=== PATIENT | female | born 1965 | race African-American/Black ===

== ENCOUNTER 2017-03-21 10:26 | Emergency (ER) | payer MEDICARE, MEDICAID ==
[~2017-03-21] VITALS: Ht 170.2 cm; Wt 108.0 kg
[2017-03-21 10:27] VITALS: BP 160/87; PULSE 101; RESP 16; TEMP 98.4; O2SAT 99
[2017-03-21] MEDS ORDERED: IOHEXOL 350 MG/ML 10 ML VIAL (for RAD DIAG) IVCONTRAST ONE (10:27)
[2017-03-21] MEDS ORDERED: MORPHINE SULFATE 4 MG/ML INJ IV PUSH ONE (11:15)
[2017-03-21] MEDS ORDERED: DOCU100C PO (11:32)
[2017-03-21] MEDS ORDERED: DILT120T PO (11:32)
[2017-03-21] MEDS ORDERED: ALBUAER3 INH (11:32)
[2017-03-21] MEDS ORDERED: ZOCO10TA PO (11:32)
[2017-03-21] MEDS ORDERED: MONT10TA4 PO (11:32)
[2017-03-21] MEDS ORDERED: VENTAER INH (11:32)
[2017-03-21] MEDS ORDERED: CHOL1CAP6 PO (11:32)
[2017-03-21] MEDS ORDERED: FERR325T8 PO (11:32)
[2017-03-21] MEDS ORDERED: HYDR25TA5 PO (11:32)
[2017-03-21] MEDS ORDERED: SODIUM CHLOR 0.9% 1000 ML INJ 1,000 ML IV SCH (11:49)
[2017-03-21] MEDS ORDERED: SODIUM CHLORIDE 0.9% FLUSH 10 ML FLUSH IV FLUSH PRN (12:00)
[2017-03-21 12:05] VITALS: RESP 17; O2SAT 98
[2017-03-21 12:06] VITALS: BP 132/68; PULSE 89; RESP 17; TEMP 97.8; O2SAT 98
[2017-03-21] MEDS ORDERED: diphenhydrAMINE HCL 50 MG/ML VIAL IV PUSH STA (12:17)
[2017-03-21 12:27] LABS: BASOPHIL # 0.1 TH/MM3 (0-0.2); BASOPHIL % 1.1 % (0.0-2.0); EOSINOPHIL # 0.2 TH/MM3 (0-0.4); EOSINOPHIL % 3.2 % (0.0-4.0); HEMO FLAGS DIFF FINAL; LYMPH % 26.5 % (9.0-44.0); LYMPHOCYTE # 1.7 TH/MM3 (1.0-4.8); MEAN CELL VOLUME 87.3 FL (80.0-100.0); MEAN CORPUSCULAR HEMOGLOBIN 27.1 PG (27.0-34.0); MONO % 8.4 % (0.0-8.0); NEUT % 60.8 % (16.0-70.0); PLATELET COUNT 264 TH/MM3 (150-450); RED BLOOD COUNT 4.81 MIL/MM3 (4.00-5.30); RED CELL DISTRIBUTION WIDTH 14.6 % (11.6-17.2); WHITE BLOOD COUNT 6.5 TH/MM3 (4.0-11.0)
[2017-03-21 12:41] LABS: ANION GAP 6 MEQ/L (5-15); AST (GOT) 8 U/L (15-37); BICARBONATE 28.3 MEQ/L (21.0-32.0); BLOOD UREA NITROGEN 8 MG/DL (7-18); CHLORIDE 106 MEQ/L (98-107); GLOMERULAR FILTRATION RATE 87 ML/MIN (>89); POTASSIUM 3.9 MEQ/L (3.5-5.1); SODIUM (NA) 140 MEQ/L (136-145)
[2017-03-21 12:45] LABS: ALKALINE PHOSPHATASE 87 U/L (45-117); ALT (GPT) 12 U/L (10-53); TOTAL BILIRUBIN ADULT 0.4 MG/DL (0.2-1.0)
[2017-03-21 14:23] VITALS: BP 128/81; PULSE 78; RESP 16; TEMP 97.9; O2SAT 99
[2017-03-21 14:36] VITALS: BP 140/70; PULSE 78; RESP 16; TEMP 97.8; O2SAT 99
--- NOTE | 2017-03-21 15:07 | RADRPT ---
EXAM DATE/TIME: 03/21/2017 14:06 [place] COMPARISON: No previous studies available for comparison. INDICATIONS : Lower right side abdomen pain. IV CONTRAST: 96 cc Omnipaque 350 (iohexol) IV ORAL CONTRAST: No oral contrast ingested. RADIATION DOSE: 22.00 CTDIvol (mGy) ; Patient body habitus MEDICAL HISTORY : Cardiovascular disease. Hypertension. AFIB SURGICAL HISTORY : Hernia repair, Pelvic mass. ENCOUNTER: Initial ACUITY: 2 days PAIN SCALE: 6/10 LOCATION: Right lower quadrant TECHNIQUE: Volumetric scanning of the abdomen and pelvis was performed. Using automated exposure control and ad justment of the mA and/or kV according to patient size, radiation dose was kept as low as reasonably achievable to obtain optimal diagnostic quality images. DICOM format image data is available electro nically for review and comparison. FINDINGS: LOWER LUNGS: The visualized lower lungs are clear. LIVER: Homogeneous density without lesion. There are calcified stones in the gallbladder. There is intrahep atic bile duct dilatation and common bile duct is dilated to at least its midportion measuring up to 12 mm. No clear obstructing mass is seen. SPLEEN: Normal size without lesion. PANCREAS: Heterogeneous appearance to the pancreatic head. There is no pancreatic duct dilatation. KIDNEYS: Normal in size and shape. There is no mass, stone or hydronephrosis. ADRENAL GLANDS: Within normal limits. VASCULAR: There is no aortic aneurysm. The pelvis mass has mass effect on the IVC. There are enlarged ovarian v eins bilaterally. BOWEL/MESENTERY: Moderate to large hiatal hernia is present. Small bowel demonstrates no acute finding. No acute colon abnormality is visualized. The pelvis mass has mass effect on the small bowel and sigmoid colon. The re is no free air or free fluid. ABDOMINAL WALL: There is a fat-containing hernia superior and to the right of the umbilicus. RETROPERITONEUM: There is no lymphadenopathy. BLADDER: Decompressed. There is mass effect on the bladder secondary to the pelvis mass. Cystic structure in t he left adnexa measures 7.4 x 3.9 cm and may represent a portion of the urinary bladder or adnexal cy stic lesion. REPRODUCTIVE: Uterus is massively enlarged with a lobulated contour and demonstrates heterogeneous density and enha ncement. There areas of coarse calcification. The uterus measures approximately 20.6 x 18.4 x 28 cm. INGUINAL: There is no lymphadenopathy or hernia. MUSCULOSKELETAL: No acute osseous abnormality is visualized. CONCLUSION: 1. Massively enlarged and lobulated uterus likely containing innumerable masses. This most likely rep resents a multi-fibroid uterus. It has mass effect on all the adjacent surrounding structures, as abo ve. 2. There is a 7 cm cystic lesion in the left adnexa which may represent a displaced portion of the ur inary bladder or could represent an adnexal/ovarian cystic lesion. 3. Cholelithiasis with abnormal intra-and extrahepatic bile duct dilatation with caliber level change in the mid common bile duct. No clear cause for this is identified. However, pancreatic head is hete rogeneous. Suggest correlating for any findings that she could suggest bile duct obstruction. At some point when patient condition permits for a good quality examination, suggest MRCP with and without i ntravenous contrast. 4. Moderate to large hiatal hernia. Roger Herrera MD on March 21, 2017 at 14:58 Board Certified Radiologist. This report was verified electronically.
[2017-03-21] MEDS ORDERED: HYDR-3533 PO (17:15)
--- NOTE | 2017-03-21 17:15 | PD ---
HPI Chief Complaint: Abdominal Pain Time Seen by Provider: 11:05 Travel History International Travel<30 days: No Contact w/Intl Traveler<30days: No Traveled to known affect area: No History of Present Illness HPI So 51 year-old woman presents emergent department with abdominal pain. She states that she started getting abdominal pain this morning. States she slipped and fell and hit her supple right side into things as caused it. She' ll little bit of sciatica symptoms. She has a lot of vertigo the cause of symptoms. She is a vertigo regularly. States she fell she's had the pain in the right inguinal area in her belly. She also states she's had umbilical hernia symptoms. She's had a local hernia for some time for the past day or 2 spinal but more tender and firm. History Past Medical History Narrative Medical Vertigo Hypertension Anemia Hyperlipidemia A. fib Arthritis Vertigo Tetanus Vaccination: < 5 Years Influenza Vaccination: No Menopausal: Yes : 2 Para: 2 Social History Alcohol Use: No (PT DENIES) Tobacco Use: No (QUIT 20 YEARS AGO) Allergies-Medications (Allergen,Severity, Reaction): Coded Allergies: aspirin (Verified Allergy, Severe, HIVES, 03/21/17) penicillin G (Verified Allergy, Severe, HIVES, 03/21/17) morphine (Verified Allergy, Intermediate, HIVES, 03/21/17) Reported Meds & Prescriptions Reported Meds & Active Scripts Active Lortab (Hydrocodone-Acetaminophen) 5-325 Mg Tab 1-2 Tab PO Q6H PRN Reported Proair Hfa 8.5 GM Inh (Albuterol Sulfate) 90 Mcg/Act Aer 2 Puff INH Q4-6H PRN 108 mcg/actuation Docusate Sodium 100 Mg Cap 100 Mg PO HS Ventolin Hfa 18 GM Inh (Albuterol Sulfate) 90 Mcg/Act Aer 2 Puff INH Q4-6H PRN Montelukast (Montelukast Sodium) 10 Mg Tab 10 Mg PO HS Zocor (Simvastatin) 10 Mg Tab 10 Mg PO DAILY Hydrochlorothiazide 25 Mg Tab 25 Mg PO DAILY Vitamin D-3 (Cholecalciferol) 1,000 Unit Cap Tab PO DAILY Ferrous Sulfate 325 Mg (65 Mg Iron) Tablet 325 Mg PO DAILY Diltiazem (Diltiazem HCl) 120 Mg Tab 120 Mg PO DAILY Review of Systems Except as stated in HPI: all other systems reviewed are Neg Physical Exam Narrative GENERAL: Well-appearing 51 year-old woman, no acute distress. SKIN: Focused skin assessment warm/dry. HEAD: Atraumatic. Normocephalic. EYES: Pupils equal and round. No scleral icterus. No injection or drainage. ENT: No nasal bleeding or discharge. Mucous membranes pink and moist. NECK: Trachea midline. No JVD. CARDIOVASCULAR: Regular rate and rhythm. No murmur appreciated. RESPIRATORY: No accessory muscle use. Clear to auscultation. Breath sounds equal bilaterally. GASTROINTESTINAL: Abdomen is obese and soft. She has a firm palpable umbilical hernia. Is difficult to completely reduce it. Is a little bit tender. MUSCULOSKELETAL: No obvious deformities. No clubbing. No cyanosis. No edema. NEUROLOGICAL: Awake and alert. No obvious cranial nerve deficits. Motor grossly within normal limits. Normal speech. PSYCHIATRIC: Appropriate mood and affect; insight and judgment normal. Data Data Last Documented VS Vital Signs Date Time Temp Pulse Resp B/P (MAP) Pulse Ox O2 Delivery O2 Flow Rate FiO2 03/21/17 14:36 97.8 78 16 140/70 (93) 99 Room Air Orders Orders Iv Access Insert/Monitor (03/21/17 11:12) Morphine Inj (Morphine Inj) (03/21/17 11:15) Complete Blood Count With Diff (03/21/17 11:49) Comprehensive Metabolic Panel (03/21/17 11:49) Lactic Acid (03/21/17 11:49) Ct Abd/Pel W Iv Contrast(Rout) (03/21/17 11:49) Ecg Monitoring (03/21/17 11:49) Oximetry (03/21/17 11:49) Sodium Chlor 0.9% 1000 Ml Inj (Ns 1000 M (03/21/17 11:49) Sodium Chloride 0.9% Flush (Ns Flush) (03/21/17 12:00) Diphenhydramine Inj (Benadryl Inj) (03/21/17 12:17) Iohexol 350 Inj (Omnipaque 350 Inj) (03/21/17 10:27) Labs Laboratory Tests Test 03/21/17 11:55 White Blood Count 6.5 TH/MM3 Red Blood Count 4.81 MIL/MM3 Hemoglobin 13.0 GM/DL Hematocrit 42.0 % Mean Corpuscular Volume 87.3 FL Mean Corpuscular Hemoglobin 27.1 PG Mean Corpuscular Hemoglobin Concent 31.0 % Red Cell Distribution Width 14.6 % Platelet Count 264 TH/MM3 Mean Platelet Volume 9.0 FL Neutrophils (%) (Auto) 60.8 % Lymphocytes (%) (Auto) 26.5 % Monocytes (%) (Auto) 8.4 % Eosinophils (%) (Auto) 3.2 % Basophils (%) (Auto) 1.1 % Neutrophils # (Auto) 4.0 TH/MM3 Lymphocytes # (Auto) 1.7 TH/MM3 Monocytes # (Auto) 0.5 TH/MM3 Eosinophils # (Auto) 0.2 TH/MM3 Basophils # (Auto) 0.1 TH/MM3 CBC Comment DIFF FINAL Differential Comment Blood Urea Nitrogen 8 MG/DL Creatinine 0.83 MG/DL Random Glucose 90 MG/DL Total Protein 7.7 GM/DL Albumin 3.3 GM/DL Calcium Level 9.1 MG/DL Alkaline Phosphatase 87 U/L Aspartate Amino Transf (AST/SGOT) 8 U/L Alanine Aminotransferase (ALT/SGPT) 12 U/L Total Bilirubin 0.4 MG/DL Sodium Level 140 MEQ/L Potassium Level 3.9 MEQ/L Chloride Level 106 MEQ/L Carbon Dioxide Level 28.3 MEQ/L Anion Gap 6 MEQ/L Estimat Glomerular Filtration Rate 87 ML/MIN Lactic Acid Level 2.4 mmol/L MDM Medical Decision Making Medical Screen Exam Complete: Yes Emergency Medical Condition: Yes Interpretation(s) Last 24 hours Impressions Abdomen/Pelvis CT 03/21/17 1149 Signed Impressions: Service Date/Time: Tuesday, March 21, 2017 14:06 - CONCLUSION: 1. Massively enlarged and lobulated uterus likely containing innumerable masses. This most likely represents a multi-fibroid uterus. It has mass effect on all the adjacent surrounding structures, as above. 2. There is a 7 cm cystic lesion in the left adnexa which may represent a displaced portion of the urinary bladder or could represent an adnexal/ovarian cystic lesion. 3. Cholelithiasis with abnormal intra-and extrahepatic bile duct dilatation with caliber level change in the mid common bile duct. No clear cause for this is identified. However, pancreatic head is heterogeneous. Suggest correlating for any findings that she could suggest bile duct obstruction. At some point when patient condition permits for a good quality examination, suggest MRCP with and without intravenous contrast. 4. Moderate to large hiatal hernia. Roger Herrera MD Laboratory Tests Test 03/21/17 11:55 White Blood Count 6.5 TH/MM3 Red Blood Count 4.81 MIL/MM3 Hemoglobin 13.0 GM/DL Hematocrit 42.0 % Mean Corpuscular Volume 87.3 FL Mean Corpuscular Hemoglobin 27.1 PG Mean Corpuscular Hemoglobin Concent 31.0 % Red Cell Distribution Width 14.6 % Platelet Count 264 TH/MM3 Mean Platelet Volume 9.0 FL Neutrophils (%) (Auto) 60.8 % Lymphocytes (%) (Auto) 26.5 % Monocytes (%) (Auto) 8.4 % Eosinophils (%) (Auto) 3.2 % Basophils (%) (Auto) 1.1 % Neutrophils # (Auto) 4.0 TH/MM3 Lymphocytes # (Auto) 1.7 TH/MM3 Monocytes # (Auto) 0.5 TH/MM3 Eosinophils # (Auto) 0.2 TH/MM3 Basophils # (Auto) 0.1 TH/MM3 CBC Comment DIFF FINAL Differential Comment Blood Urea Nitrogen 8 MG/DL Creatinine 0.83 MG/DL Random Glucose 90 MG/DL Total Protein 7.7 GM/DL Albumin 3.3 GM/DL Calcium Level 9.1 MG/DL Alkaline Phosphatase 87 U/L Aspartate Amino Transf (AST/SGOT) 8 U/L Alanine Aminotransferase (ALT/SGPT) 12 U/L Total Bilirubin 0.4 MG/DL Sodium Level 140 MEQ/L Potassium Level 3.9 MEQ/L Chloride Level 106 MEQ/L Carbon Dioxide Level 28.3 MEQ/L Anion Gap 6 MEQ/L Estimat Glomerular Filtration Rate 87 ML/MIN Lactic Acid Level 2.4 mmol/L Differential Diagnosis Incarcerated hernia, mass, obstruction, other Narrative Course Medical decision-making new para this a 51 year-old woman presents emergent from vague right lower abdominal discomfort. She has an umbilical hernia that she thinks the pains related to but it's not over the hernia itself. I can't completely reduce the hernia at the bedside. CT scan shows a contains only fat. Source of her pain is likely large fibroid uterus. She needs follow-up either way. She looks well. No vomiting or obstructive symptoms. She is a benign abdominal exam. Diagnosis Primary Impression: Abdominal pain Additional Instructions: Follow-up with her primary doctor. Return to the emergency department for any new or worsening symptoms. Med/Other Pt SpecificInfo: Prescription(s) given Scripts Hydrocodone-Acetaminophen (Lortab) 5-325 Mg Tab 1-2 TAB PO Q6H Y for PAIN, #12 TAB 0 Refills Prov: Dhruv Silvestre MD 03/21/17 Disposition: 01 DISCHARGE HOME Condition: Stable Dhruv Silvestre MD Mar 21, 2017 17:15
[2017-03-21 17:20] VITALS: BP 122/81; TEMP 97.8
== END 2017-03-21 17:22 | disposition home or self-care (01) ==
LOC: NEPD 10:26
DX: R10.31 Right lower quadrant pain (principal); K42.9 Umbilical hernia without obstruction or gangrene; K44.9 Diaphragmatic hernia without obstruction or gangrene; K80.20 Calculus of gallbladder without cholecystitis without obstruction; I10 Essential (primary) hypertension; D64.9 Anemia, unspecified; I48.91 Unspecified atrial fibrillation; Z79.899 Other long term (current) drug therapy; W01.0XXA Fall on same level from slipping, tripping and stumbling without subsequent striking against object, initial encounter
CPT/HCPCS: 74177; 80053; 83605; 85025; 96361; 96374; 96375; 99285; J1200; J2270; J7030; Q9967

== ENCOUNTER 2017-04-03 20:15 | Emergency (ER) | payer MEDICAID, MEDICARE ==
[~2017-04-03 20:15] MED LIST: ALBUAER3 INH; CHOL1CAP6 PO; DILT120T PO; DOCU100C PO; FERR325T8 PO; HYDR-3533 PO; HYDR25TA5 PO; MONT10TA4 PO; VENTAER INH; ZOCO10TA PO
[2017-04-03 20:19] VITALS: BP 169/87; PULSE 92; RESP 16; TEMP 98.6; O2SAT 95
[2017-04-03] MEDS ORDERED: HYDR-3533 PO (22:29)
[2017-04-03] MEDS ORDERED: IBUP-232 PO (22:29)
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
[2017-04-03] MEDS ORDERED: KETOROLAC TROMETHAMINE 60 MG/2 ML (IM) VIAL IM ONE (22:30)
[2017-04-03] MEDS ORDERED: ACETAMINOPHEN/HYDROcodone 325 MG/5 MG TAB PO ONE (22:30)
== END 2017-04-03 22:51 | disposition home or self-care (01) ==
LOC: NEPD 20:15
DX: R10.31 Right lower quadrant pain (principal); R19.09 Other intra-abdominal and pelvic swelling, mass and lump; I10 Essential (primary) hypertension; Z87.09 Personal history of other diseases of the respiratory system; Z86.79 Personal history of other diseases of the circulatory system; Z86.69 Personal history of other diseases of the nervous system and sense organs
CPT/HCPCS: 96372; 99284; J1885

== ENCOUNTER 2017-07-15 19:52 | Emergency (ER) | payer MEDICARE ==
[~2017-07-15] VITALS: Ht 172.7 cm; Wt 110.0 kg
[~2017-07-15 19:52] MED LIST changes: -CHOL1CAP6 PO; +D31000CA3 PO; -DOCU100C PO; +DOCU100C15 PO; +FERR325T18 PO; -FERR325T8 PO; +IBUP-232 PO
[2017-07-15 19:55] VITALS: BP 180/93; PULSE 100; RESP 18; TEMP 98.3; O2SAT 97
[2017-07-15 20:36] VITALS: BP 150/81; PULSE 95; RESP 16; O2SAT 97
[2017-07-15 21:21] VITALS: RESP 19; O2SAT 98
[2017-07-15 21:28] LABS: AUTOMATED NEUTROPHIL # 3.8 TH/MM3 (1.8-7.7); BASOPHIL # 0.1 TH/MM3 (0-0.2); BASOPHIL % 1.1 % (0.0-2.0); EOSINOPHIL # 0.2 TH/MM3 (0-0.4); EOSINOPHIL % 3.8 % (0.0-4.0); HEMATOCRIT 41.5 % (35.0-46.0); HEMOGLOBIN 13.1 GM/DL (11.6-15.3); LYMPH % 20.8 % (9.0-44.0); LYMPHOCYTE # 1.2 TH/MM3 (1.0-4.8); MEAN CELL VOLUME 85.4 FL (80.0-100.0); MEAN CORPUSCULAR HGB CONC 31.6 % (32.0-36.0); MEAN PLATELET VOLUME 8.7 FL (7.0-11.0); MONO % 9.1 % (0.0-8.0); MONOCYTE # 0.5 TH/MM3 (0-0.9); NEUT % 65.2 % (16.0-70.0); PLATELET COUNT 282 TH/MM3 (150-450); RED BLOOD COUNT 4.86 MIL/MM3 (4.00-5.30); RED CELL DISTRIBUTION WIDTH 13.9 % (11.6-17.2); WHITE BLOOD COUNT 5.8 TH/MM3 (4.0-11.0)
[2017-07-15 22:02] LABS: ALT (GPT) 12 U/L (10-53)
[2017-07-15 22:07] LABS: ALBUMIN 3.5 GM/DL (3.4-5.0); ALKALINE PHOSPHATASE 82 U/L (45-117); AST (GOT) 13 U/L (15-37); BICARBONATE 25.2 MEQ/L (21.0-32.0); BLOOD UREA NITROGEN 12 MG/DL (7-18); CALCIUM 9.3 MG/DL (8.5-10.1); CHLORIDE 105 MEQ/L (98-107); CREATININE 0.88 MG/DL (0.50-1.00); GLOMERULAR FILTRATION RATE 82 ML/MIN (>89); GLUCOSE,RANDOM 113 MG/DL (74-106); SODIUM (NA) 140 MEQ/L (136-145); TOTAL BILIRUBIN ADULT 0.3 MG/DL (0.2-1.0); TOTAL PROTEIN 8.3 GM/DL (6.4-8.2); TROPONIN I LESS THAN 0.02 NG/ML (0.02-0.05)
--- NOTE | 2017-07-15 22:11 | PD ---
HPI Chief Complaint: Dizziness Time Seen by Provider: 20:47 Travel History International Travel<30 days: No Contact w/Intl Traveler<30days: No Traveled to known affect area: No History of Present Illness HPI This is a 51-year-old female history of hypertension, asthma, hyperlipidemia, who presents today stating that she is out of her medications. She states that she just feels funny. She also reports tingling to the left lateral neck. There is no numbness or tingling to her extremities. There is no headache. There is no neck pain. There are no other complaints time my examination. She is visiting here from [place]. The patient denies any history of diabetes. She reports mainly her diltiazem as the one that she is completely out of. PFSH Past Medical History Asthma: Yes Atrial Fibrillation: Yes Cardiovascular Problems: Yes (AFIB) Diminished Hearing: No Hypertension: Yes Medical other: Yes (EDEMA) Neurologic: Yes (VERTIGO) Reproductive: Yes (UTERINE FIBROIDS) ?: Not Menopausal: Yes : 2 Para: 2 Miscarriage: 0 : 0 Past Surgical History Abdominal Surgery: Yes (HERNIA REPAIR ) Social History Alcohol Use: No (PT DENIES) Tobacco Use: No (QUIT 20 YEARS AGO) Substance Use: No (PT DENIES) Allergies-Medications (Allergen,Severity, Reaction): Coded Allergies: aspirin (Verified Allergy, Severe, HIVES, 07/15/17) penicillin G (Verified Allergy, Severe, HIVES, 07/15/17) morphine (Verified Allergy, Intermediate, HIVES, 07/15/17) Reported Meds & Prescriptions Reported Meds & Active Scripts Active Ibuprofen 600 Mg Tab 600 Mg PO Q8H PRN Lortab (Hydrocodone-Acetaminophen) 5-325 Mg Tab 1-2 Tab PO Q6H PRN Lortab (Hydrocodone-Acetaminophen) 5-325 Mg Tab 1-2 Tab PO Q6H PRN Reported Proair Hfa 8.5 GM Inh (Albuterol Sulfate) 90 Mcg/Act Aer 2 Puff INH Q4-6H PRN 108 mcg/actuation Docusate Sodium 100 Mg Cap 100 Mg PO HS Ventolin Hfa 18 GM Inh (Albuterol Sulfate) 90 Mcg/Act Aer 2 Puff INH Q4-6H PRN Montelukast (Montelukast Sodium) 10 Mg Tab 10 Mg PO HS Zocor (Simvastatin) 10 Mg Tab 10 Mg PO DAILY Hydrochlorothiazide 25 Mg Tab 25 Mg PO DAILY Vitamin D-3 (Cholecalciferol) 1,000 Unit Cap Tab PO DAILY Ferrous Sulfate 325 Mg (65 Mg Iron) Tablet 325 Mg PO DAILY Diltiazem (Diltiazem HCl) 120 Mg Tab 120 Mg PO DAILY Review of Systems Except as stated in HPI: all other systems reviewed are Neg General / Constitutional: No: Fever, Chills HENT: No: Headaches, Neck Pain Cardiovascular: No: Chest Pain or Discomfort, Palpitations Respiratory: No: Cough, Shortness of Breath Gastrointestinal: No: Nausea, Vomiting, Abdominal Pain Genitourinary: No: Frequency, Dysuria Musculoskeletal: No: Weakness, Pain Neurologic: Positive: Other (tingling to the left lateral neck.), No: Weakness , Dizziness, Headache Physical Exam Narrative GENERAL: Well developed well-nourished female in no acute respiratory distress. SKIN: Focused skin assessment warm/dry. HEAD: Atraumatic. Normocephalic. EYES: No scleral icterus. No injection or drainage. ENT: No nasal bleeding or discharge. Mucous membranes pink and moist. NECK: Trachea midline. Supple. CARDIOVASCULAR: Regular rate and rhythm. No murmur appreciated. RESPIRATORY: No accessory muscle use. Clear to auscultation. Breath sounds equal bilaterally. GASTROINTESTINAL: Abdomen soft, non-tender, nondistended. Hepatic and splenic margins not palpable. MUSCULOSKELETAL: No obvious deformities. No clubbing. No cyanosis. No edema. NEUROLOGICAL: Awake and alert. No obvious cranial nerve deficits. Motor grossly within normal limits. Normal speech. Sensation equal to all 4 extremities. PSYCHIATRIC: Appropriate mood and affect; insight and judgment normal. Data Data Last Documented VS Vital Signs Date Time Temp Pulse Resp B/P (MAP) Pulse Ox O2 Delivery O2 Flow Rate FiO2 07/15/17 21:21 19 98 Room Air 07/15/17 20:36 95 07/15/17 19:55 98.3 Orders Orders Electrocardiogram (07/15/17 20:58) Complete Blood Count With Diff (07/15/17 20:58) Comprehensive Metabolic Panel (07/15/17 20:58) Ckmb (Isoenzyme) Profile (07/15/17 20:58) Troponin I (07/15/17 20:58) Iv Access Insert/Monitor (07/15/17 20:58) Ecg Monitoring (07/15/17 20:58) Oximetry (07/15/17 20:58) Labs Laboratory Tests Test 07/15/17 21:05 White Blood Count 5.8 TH/MM3 Red Blood Count 4.86 MIL/MM3 Hemoglobin 13.1 GM/DL Hematocrit 41.5 % Mean Corpuscular Volume 85.4 FL Mean Corpuscular Hemoglobin 27.0 PG Mean Corpuscular Hemoglobin Concent 31.6 % Red Cell Distribution Width 13.9 % Platelet Count 282 TH/MM3 Mean Platelet Volume 8.7 FL Neutrophils (%) (Auto) 65.2 % Lymphocytes (%) (Auto) 20.8 % Monocytes (%) (Auto) 9.1 % Eosinophils (%) (Auto) 3.8 % Basophils (%) (Auto) 1.1 % Neutrophils # (Auto) 3.8 TH/MM3 Lymphocytes # (Auto) 1.2 TH/MM3 Monocytes # (Auto) 0.5 TH/MM3 Eosinophils # (Auto) 0.2 TH/MM3 Basophils # (Auto) 0.1 TH/MM3 CBC Comment DIFF FINAL Differential Comment Blood Urea Nitrogen 12 MG/DL Creatinine 0.88 MG/DL Random Glucose 113 MG/DL Total Protein 8.3 GM/DL Albumin 3.5 GM/DL Calcium Level 9.3 MG/DL Alkaline Phosphatase 82 U/L Aspartate Amino Transf (AST/SGOT) 13 U/L Alanine Aminotransferase (ALT/SGPT) 12 U/L Total Bilirubin 0.3 MG/DL Sodium Level 140 MEQ/L Potassium Level 3.9 MEQ/L Chloride Level 105 MEQ/L Carbon Dioxide Level 25.2 MEQ/L Anion Gap 10 MEQ/L Estimat Glomerular Filtration Rate 82 ML/MIN Total Creatine Kinase 78 U/L Troponin I LESS THAN 0.02 NG/ML [facility] Medical Decision Making Medical Screen Exam Complete: Yes Emergency Medical Condition: Yes Differential Diagnosis Involved arrangement versus dehydration versus anemia. Narrative Course 51-year-old female presents today stating that she felt funny. She reported tingling to her left lateral neck. Patient has no focal deficits on exam. She had subjective tingling on her left lateral neck that is nearly resolved. The patient has had no headache no dizziness, no blurry vision. She states that she had not taken her diltiazem for a few days. Blood pressure was 150/80. EKG shows no evidence of acute process. Electrolytes and CBC are within normal limits. The patient be discharged with a prescription for her diltiazem 120 CD for 30 days. She is going back to [place] after the holidays. She's instructed return here if she develops any new symptoms or any other reason the concerns her. Diagnosis Primary Impression: left lateral neck tingling sensation Additional Impressions: Hypertension Medication refill Hyperlipidemia History of asthma Additional Instructions: Follow up with her physician when you return home to [place]. Return if you feel any new sensation or any reason the concerns. Med/Other Pt SpecificInfo: Prescription(s) given Scripts Diltiazem CD 24 HR (Diltiazem CD 24 HR) 120 Mg Caper 120 MG PO DAILY, #30 CAP 0 Refills Prov: Lisandro Gonzalez MD 07/15/17 Disposition: 01 DISCHARGE HOME Condition: Stable Lisandro Gonzalez MD Jul 15, 2017 22:11
[2017-07-15] MEDS ORDERED: DILT120C50 PO (22:23)
--- NOTE | 2017-07-16 09:33 | EKG ---
Date Performed: 07/15/2017 Time Performed: 21:11:41 PTAGE: 51 years EKG: Sinus rhythm BORDERLINE LEFT AXIS DEVIATION BORDERLINE ECG No prior electrocardiogram available for comparison. DOCTOR: Hebert Carlos Interpretating Date/Time 07/17/2017 07:54:12
== END 2017-07-15 23:12 | disposition home or self-care (01) ==
LOC: NEPC 19:52
DX: R20.2 Paresthesia of skin (principal); I10 Essential (primary) hypertension; E78.5 Hyperlipidemia, unspecified; J45.909 Unspecified asthma, uncomplicated; I48.91 Unspecified atrial fibrillation; Z87.891 Personal history of nicotine dependence
CPT/HCPCS: 80053; 82550; 84484; 85025; 93005; 99284